=== PATIENT | male | born 1995 | race Caucasian/White ===

== ENCOUNTER 2016-10-21 15:51 | Emergency (ER) | payer OTHER ==
[~2016-10-21] VITALS: Ht 180.3 cm; Wt 105.0 kg
[~2016-10-21 15:51] MED LIST: DEPAKOTE250 MG PO; DEPAKOTE500 MG PO; DIVALPROEX SOD500 M1 PO; GLUCAGON1 MG IM; LAMICTAL XR200 MG PO; LAMICTAL200 MG PO; MOTRIN800 MG PO; OXCARBAZEPINE600 MG PO; PERCOCET 5/31 TABLET PO; [UNRECOGNIZED DRUG - OTHER] PO
[2016-10-21 16:11] LABS: POINT-OF-CARE METER ID UU14100415
[2016-10-21 16:35] LABS: MCH 30.9 PG (29.0-34.0); MCHC 34.7 G/DL (30.0-36.0); MCV 88.9 FL (86-99); MEAN PLAT.VOLUME 9.9 uM^3 (9.0-12.4); PLATELET COUNT 340 K/uL (156-360); RBC DIS.WIDTH-CV 12.4 % (11.8-14.6); RBC DIS.WIDTH-SD 40.7 % (39-53); RED BLOOD COUNT 5.51 M/uL (4.00-5.50); WHITE BLOOD COUNT 7.7 K/uL (4.1-10.2)
[2016-10-21 16:48] LABS: CHLORIDE 106 mEq/L (99-109); POTASSIUM 3.9 mEq/L (3.7-5.4); SODIUM 142 mEq/L (136-147)
[2016-10-21 16:50] LABS: GLUCOSE 87 mg/dL (70-99)
[2016-10-21 16:51] LABS: ANION GAP 17 MEQ/L (2-14)
[2016-10-21 16:54] LABS: GFR ESTIMATE (CALCULATED) > 59 mL/min/
[2016-10-21 16:55] LABS: UREA NITROGEN (BUN) 13 mg/dL (9-23)
[2016-10-21 18:31] VITALS: BP 142/78
== END 2016-10-21 18:31 | disposition home or self-care (01) ==
LOC: EME 15:51
PROVIDERS: Emergency Medicine
DX: G40.909 Epilepsy, unspecified, not intractable, without status epilepticus (principal); T46.5X6A Underdosing of other antihypertensive drugs, initial encounter; E16.1 Other hypoglycemia; Z91.14 Patient's other noncompliance with medication regimen
CPT/HCPCS: 80048; 82948; 85027; 99281; 99284

== ENCOUNTER 2017-06-11 14:32 | Emergency (ER) | payer OTHER ==
[~2017-06-11] VITALS: Ht 180.3 cm; Wt 105.2 kg
[2017-06-11 17:36] LABS: POINT-OF-CARE METER ID UU13113702
[2017-06-11 17:43] LABS: AMPHETAMINE NEGATIVE (500 ng/mL); BARBITURATES NEGATIVE (200 ng/mL); BENZODIAZEPINES NEGATIVE (150 ng/mL); COCAINE NEGATIVE (150 ng/mL); METHADONE NEGATIVE (200 ng/mL); METHAMPHETAMINE NEGATIVE (500 ng/mL); OPIATES (MORPHINE) NEGATIVE (100 ng/mL); OXYCODONE NEGATIVE (100 ng/mL); PHENCYCLIDINE NEGATIVE (25 ng/mL); PROPOXYPHENE NEGATIVE (300 ng/mL); THC CANNABINOIDS NEGATIVE (50 ng/mL); TRICYCLIC ANTIDEPRESSANTS NEGATIVE (300 ng/mL)
[2017-06-11 17:44] LABS: INTERNAL CONTROLS VALID? YES
[2017-06-11 20:46] VITALS: BP 123/74
== END 2017-06-11 20:48 | disposition home or self-care (01) ==
LOC: EME 14:32
PROVIDERS: Emergency Medicine
DX: F19.10 Other psychoactive substance abuse, uncomplicated (principal); G40.909 Epilepsy, unspecified, not intractable, without status epilepticus; Z72.0 Tobacco use
CPT/HCPCS: 82948; 99281; 99284; J7030

== ENCOUNTER 2017-07-26 19:19 | Emergency (ER) | payer OTHER ==
[~2017-07-26] VITALS: Ht 180.3 cm; Wt 104.4 kg
[2017-07-26] MEDS ORDERED: ATIVAN1 MG PO (19:45)
[2017-07-26 20:42] VITALS: BP 129/102
== END 2017-07-26 20:43 | disposition home or self-care (01) ==
LOC: EME 19:19
DX: F41.9 Anxiety disorder, unspecified (principal); R07.89 Other chest pain; M54.5 Low back pain; R10.9 Unspecified abdominal pain; F17.200 Nicotine dependence, unspecified, uncomplicated
CPT/HCPCS: 99281; 99284

== ENCOUNTER 2017-08-09 22:29 | Emergency (ER) | payer OTHER ==
[~2017-08-09] VITALS: Ht 180.3 cm; Wt 102.2 kg
[~2017-08-09 22:29] MED LIST changes: +ATIVAN1 MG PO
[2017-08-09 23:04] LABS: HEMATOCRIT 44.7 % (38.0-50.0); HEMOGLOBIN 16.4 G/DL (12.5-16.6); MCH 31.5 PG (29.0-34.0); MCHC 36.7 G/DL (30.0-36.0); MCV 85.8 FL (86-99); PLATELET COUNT 350 K/uL (156-360); RBC DIS.WIDTH-CV 12.2 % (11.8-14.6); RBC DIS.WIDTH-SD 37.8 % (39-53); RED BLOOD COUNT 5.21 M/uL (4.00-5.50); WHITE BLOOD COUNT 5.5 K/uL (4.1-10.2)
[2017-08-09 23:16] LABS: ALBUMIN 4.9 g/dL (3.2-4.8); CHLORIDE 104 mEq/L (99-109); POTASSIUM 3.9 mEq/L (3.7-5.4); SODIUM 140 mEq/L (136-147)
[2017-08-09 23:18] LABS: GLUCOSE 98 mg/dL (70-99); TOTAL PROTEIN 7.6 g/dL (6.4-8.3)
[2017-08-09 23:20] LABS: TOTAL BILIRUBIN 0.3 mg/dL (0.0-1.0)
[2017-08-09 23:22] LABS: ALKALINE PHOSPHATASE 84 IU/L (3-129); CREATININE 1.1 mg/dL (0.6-1.3); GFR ESTIMATE (CALCULATED) > 59 mL/min/ (58.99-99999)
[2017-08-09 23:23] LABS: UREA NITROGEN (BUN) 13 mg/dL (9-23)
[2017-08-09 23:24] LABS: AST (GOT) 30 IU/L (2-34)
[2017-08-09 23:25] LABS: ALT (GPT) 43 IU/L (3-49)
[2017-08-10 02:30] VITALS: BP 134/89
== END 2017-08-10 01:30 | disposition home or self-care (01) ==
LOC: EME 22:29 → EXP 22:29
DX: R10.84 Generalized abdominal pain (principal); G47.00 Insomnia, unspecified; R56.9 Unspecified convulsions; F17.200 Nicotine dependence, unspecified, uncomplicated
CPT/HCPCS: 80053; 85027; 99281; 99283

== ENCOUNTER 2017-09-01 07:54 | Emergency (ER) | payer OTHER ==
[~2017-09-01] VITALS: Ht 88.9 cm; Wt 105.8 kg
[2017-09-01 08:30] LABS: BASOPHIL (%) 0.5 % (0-1); EOSINOPHIL COUNT 0.2 K/uL (0-0.3); HEMOGLOBIN 16.3 G/DL (12.5-16.6); IMMATURE GRANULOCYTE (%) 0.2 % (0.0-0.7); LYMPHOCYTE (%) 44.1 % (15-42); LYMPHOCYTE COUNT 1.9 K/uL (1.0-2.8); MCH 31.3 PG (29.0-34.0); MCHC 36.2 G/DL (30.0-36.0); MCV 86.5 FL (86-99); MONOCYTE (%) 10.7 % (3-12); MONOCYTE COUNT 0.5 K/uL (0-0.8); NEUTROPHIL (%) 39.5 % (45-76); NEUTROPHIL COUNT 1.7 K/uL (1.8-6.4); PLATELET COUNT 296 K/uL (156-360); RBC DIS.WIDTH-CV 12.8 % (11.8-14.6); RBC DIS.WIDTH-SD 40.1 % (39-53); WHITE BLOOD COUNT 4.2 K/uL (4.1-10.2)
[2017-09-01 08:40] LABS: CHLORIDE 103 mEq/L (99-109); POTASSIUM 4.1 mEq/L (3.7-5.4); SODIUM 140 mEq/L (136-147)
[2017-09-01 08:41] LABS: GLUCOSE 87 mg/dL (70-99)
[2017-09-01 08:45] LABS: CREATININE 0.9 mg/dL (0.6-1.3); GFR ESTIMATE (CALCULATED) > 59 mL/min/ (58.99-99999)
[2017-09-01 08:46] LABS: UREA NITROGEN (BUN) 10 mg/dL (9-23)
[2017-09-01] MEDS ORDERED: KEPPRA500 MG PO (09:11)
[2017-09-01] MEDS ORDERED: ATARAX,VISTARIL25 MG PO (10:12)
[2017-09-01] MEDS ORDERED: LEXAPRO10 MG PO (10:12)
[2017-09-01 10:15] VITALS: BP 132/74
== END 2017-09-01 10:15 | disposition home or self-care (01) ==
LOC: EME 07:54
PROVIDERS: Emergency Medicine
DX: G40.909 Epilepsy, unspecified, not intractable, without status epilepticus (principal)
CPT/HCPCS: 80048; 81003; 85025; 99281; 99284

== ENCOUNTER 2017-10-23 21:35 | Emergency (ER) | payer OTHER ==
[~2017-10-23] VITALS: Ht 180.3 cm; Wt 106.8 kg
[~2017-10-23 21:35] MED LIST changes: +ATARAX,VISTARIL25 MG PO; +KEPPRA500 MG PO; +LEXAPRO10 MG PO
[2017-10-24] MEDS ORDERED: DICLOFENAC SODI75 MG PO (00:29)
[2017-10-24 00:35] VITALS: BP 147/107
== END 2017-10-24 00:41 | disposition home or self-care (01) ==
LOC: EME 21:35
DX: S93.602A Unspecified sprain of left foot, initial encounter (principal); Y93.67 Activity, basketball; R56.9 Unspecified convulsions
CPT/HCPCS: 73610; 73630; 99281; 99283

== ENCOUNTER 2018-03-18 21:29 | Emergency (ER) | payer OTHER ==
[~2018-03-18] VITALS: Ht 180.3 cm; Wt 109.5 kg
[~2018-03-18 21:29] MED LIST changes: +DICLOFENAC SODI75 MG PO
[2018-03-18 21:39] VITALS: BP 137/96
[2018-03-19 01:13] LABS: HEMATOCRIT 43.7 % (38.0-50.0); HEMOGLOBIN 15.6 G/DL (12.5-16.6); MCH 31.5 PG (29.0-34.0); MCHC 35.7 G/DL (30.0-36.0); MCV 88.1 FL (86-99); PLATELET COUNT 308 K/uL (156-360); RBC DIS.WIDTH-CV 12.6 % (11.8-14.6); RBC DIS.WIDTH-SD 40.7 % (39-53); RED BLOOD COUNT 4.96 M/uL (4.00-5.50); WHITE BLOOD COUNT 7.1 K/uL (4.1-10.2)
[2018-03-19 01:22] LABS: CHLORIDE 104 mEq/L (99-109); POTASSIUM 4.1 mEq/L (3.7-5.4); SODIUM 140 mEq/L (136-147)
[2018-03-19 01:23] LABS: GLUCOSE 101 mg/dL (70-99)
[2018-03-19 01:27] LABS: GFR ESTIMATE (CALCULATED) > 59 mL/min/ (58.99-99999)
[2018-03-19 01:28] LABS: UREA NITROGEN (BUN) 12 mg/dL (9-23)
[2018-03-19 01:30] LABS: URIC ACID 10.9 mg/dL (3.1-9.2)
[2018-03-19] MEDS ORDERED: NAPROSYN500 MG PO (01:45)
[2018-03-19] MEDS ORDERED: KEFLEX500 MG PO (01:45)
== END 2018-03-19 01:56 | disposition home or self-care (01) ==
LOC: RME 21:29 → EME 21:29 → RME 03-19 01:56
PROVIDERS: Physician Assistant
DX: M79.674 Pain in right toe(s) (principal)
CPT/HCPCS: 73630; 80048; 84550; 85027; 99281; 99284